=== PATIENT | female | born 1995 | race Caucasian/White ===

== ENCOUNTER 2017-03-14 16:53 | Emergency (ER) | payer OTHER ==
--- NOTE | ~2017-03-14 | CR2 ---
[facility] A Service [facility] RADIOLOGY TEXT RESULTS PATIENT: IFEANYI CAMERON LOCATION: SED : 97 UNIT #: [id number] AGE: [address]: Mame Morris SEX: F ORDER DR: [id number] [address] [address] [id number] MR#: [id number] Acc #: [id number] NAME: IFEANYI CAMERON. : 1995 SEX: F STUDY DATE/TIME: 03/14/2017 17:20 UNIT: SED ROOM: STUDY DESCRIPTION: CR Abdomen Acute Series Attending Physician: Mame Morris Pa-C Ordering Physician: Mame Morris Pa-C Primary Care Physician: Nithin Key M.D. MEDICAL IMAGING REPORT This report is preliminary unless electronic signature is present. EXAM Acute abdominal series. DATE OF EXAM 03/14/2017 HISTORY Chest pain. Upper abdomen pain, nausea with heartburn began yesterday. Negative HCG. REPORT AP radiograph of the chest is presented with supine and upright radiographs of the abdomen and pelvis. COMPARISON Chest radiograph 04/29/2016. FINDINGS Mild scoliosis convex to the right at the thoracolumbar junction. No acute-appearing bony abnormality. The heart and mediastinum normal in size and contour. The lungs are well inflated without evidence of acute pulmonary disease. No pleural effusion or pneumothorax and no suspicious nodule. The bowel gas pattern is within normal limits. No small bowel or colonic dilatation. Physiologic stool burden in colon. No free air. Where visible, the solid organ contours are unremarkable. Dictated by... Vitaliy Purcell M.D. [facility] A Service [facility] RADIOLOGY TEXT RESULTS PATIENT: IFEANYI CAMERON LOCATION: SED : 97 UNIT #: [id number] AGE: [address]: Mame Morris SEX: F ORDER DR: THIS IS AN ELECTRONICALLY VERIFIED REPORT Vitaliy Purcell M.D. at 03/15/2017 6:26 PM Gracie TD: 03/14/2017 20:36 JOB #: [id number] MEDICAL IMAGING REPORT Page 1 of 1
[~2017-03-14 16:53] MED LIST: ALBUTEROL17 GM INH; BACTRIM DS TABL1 TA1 PO; BENZONATATE PO; BIRTH CONTROL PILL PO; CLARITIN10 MG PO; FLONASE 0.05% N16 G1; IRON PO; MACROBID100 MG PO; NAPROSYN250 M1 PO; NAPROXEN PO; NO MEDICATIONS; PHENERGAN25 M1 PO; PREDNISONE10 MG/DOSE PO; PRENATAL VITAMI1 TA4 PO; PYRIDIUM100 MG PO; SINGULAIR PO; TESSALON200 MG PO; TYLENOL #3 PO; ZYRTEC PO; ZYRTEC10 M2 PO; [UNRECOGNIZED DRUG - OTHER] PO
[2017-03-14 17:16] LABS: URINE SOURCE CLEAN CATCH
[2017-03-14 17:32] LABS: MICRO INDICATED? NO; URINE APPEARANCE CLEAR; URINE BILIRUBIN NEG (NEG); URINE BLOOD NEG (NEG); URINE COLOR YELLOW; URINE GLUCOSE NORM (NEG); URINE KETONE NEG (NEG); URINE LEUKOCYTE ESTERASE NEG (NEG); URINE NITRATE NEG (NEG); URINE PROTEIN NEG (NEG); URINE SPECIFIC GRAVITY 1.015 (1.003-1.035); URINE UROBILINOGEN 0.2 MG/DL (NEG)
[2017-03-14 17:37] LABS: BASOPHIL% 0.5 % (0-2.5); EOSINOPHIL% 0.9 % (0.0-7.0); HEMATOCRIT 40.6 % (35.0-45.0); HEMOGLOBIN 13.5 gm/dL (12.0-16.0); LYMPHOCYTE# 0.8 X10e3 (1.0-3.5); LYMPHOCYTE% 15.8 % (17.0-45.0); MEAN CELL VOLUME 89.2 FL (83-96); MEAN CORPUSCULAR HEMOGLOBIN 29.7 PG (28-34); MEAN CORPUSCULAR HGB CONC 33.3 g/dL (30-36); MEAN PLATELET VOLUME 7.6 FL (6.5-11.5); MONOCYTE# 0.4 X10e3 (0-1.0); MONOCYTE% 7.1 % (3.0-12.0); NEUTROPHIL# 3.8 X10e3 (1.5-7.1); NEUTROPHIL% 75.7 % (40-75); PLATELET COUNT 185 X10e3 (140-420); RED BLOOD COUNT 4.55 X10e (3.90-5.30); RED CELL DISTRIBUTION WIDTH 13.5 % (11.0-15.5)
[2017-03-14 17:39] LABS: DIFF IND NO
[2017-03-14 17:56] LABS: ALBUMIN SERUM 4.1 g/dL (3.5-5.0); BILIRUBIN,TOTAL 0.2 mg/dL (0.2-2.0); BUN/CREATININE RATIO 17.14; CALCIUM SERUM 8.7 mg/dL (8.4-10.2); CREATININE SERUM 0.7 mg/dL (0.6-1.4); GLOM FILT RATE Estimated 124.7 mL/min (>60)
== END 2017-03-14 19:05 | disposition home or self-care (01) ==
LOC: SED 16:53
PROVIDERS: Emergency Medicine; Physician Assistant
DX: K21.9 Gastro-esophageal reflux disease without esophagitis (principal); D64.9 Anemia, unspecified
CPT/HCPCS: 74022; 80053; 81003; 83690; 84703; 85025; 86677; 99284